=== PATIENT | female | born 1970 ===

== ENCOUNTER 2019-02-14 09:37 | Day surgery (SDC) | payer OTHER ==
[~2019-02-14] VITALS: Ht 165.1 cm; Wt 103.0 kg
[2019-02-14] VITALS (8 sets, daily range): BP systolic 117–139; BP diastolic 48–87
[~2019-02-14 09:37] MED LIST: LR 1000ml 1,000 ML IVLG SCH
[2019-02-14] MEDS ORDERED: LR 1000ml 1,000 ML IVLG SCH (10:02)
[2019-02-14] MEDS ORDERED: DiphenhydrAMINE 50mg/ml Inj IVP PRN (10:15)
[2019-02-14] MEDS ORDERED: fentaNYL 100 mcg/2 mL IV PRN (10:15)
[2019-02-14] MEDS ORDERED: Midazolam 2mg/2ml Inj IVP PRN (10:15)
[2019-02-14] MEDS ORDERED: Atropine Inj 1mg/10ml Syr IV PRN (10:15)
--- NOTE | 2019-02-14 10:15 | Anethesia Preoperative Eval ---
Anesthesia Pre-op PMH/ROS General Date of Evaluation: Feb 14, 2019 Time of Evaluation: 10:05 Anesthesiologist: carla ASA Score: ASA 2 Mallampati Score Class I : Soft palate, uvula, fauces, pillars visible Class II: Soft palate, uvula, fauces visible Class III: Soft palate, base of uvula visible Class IV: Only hard plate visible Mallampati Classification: Class II Surgeon: shira Diagnosis: anemia, gerd Surgical Procedure: egd/colonoscopy Social History: smoking - nonsmoker Family History: no anesthesia problems Allergies: Coded Allergies: No Known Allergies (Unverified , 02/12/19) Medications: see eMAR Patient NPO?: Yes Past Medical History Pulmonary: Reports: other - pneumonia HEENT: Reports: other - decreased visual acuity PSxH Narrative: nasal sx, tonsillectomy, hysterectomy Anesthesia Pre-op Phys. Exam Physician Exam Last Vital Signs Date Time Temp Pulse Resp B/P (MAP) Pulse Ox O2 Delivery O2 Flow Rate FiO2 02/14/19 10:16 Room Air 02/14/19 10:12 98.3 90 20 139/87 99 Constitutional: NAD Neurologic: CN 2-12 intact Cardiovascular: RRR Respiratory: CTA Gastrointestinal: S/NT/ND Airway Exam Mallampati Score: Class II MO: limited Neck: flexible TMD: 2fb ROM: limited Anesthesia Pre-op A/P Risk Assessment & Plan Assessment: asa2 Plan: mac Status Change Before Surgery: No Pre-Antibiotics Drug: Jennifer Jarrell MD Feb 14, 2019 10:15
[2019-02-14] MEDS ORDERED: Lidocaine 1% MPF 10mg/ml 5ml ONE (12:00)
[2019-02-14] MEDS ORDERED: Propofol 200mg/20ml IV ONE (12:00)
[2019-02-14] MEDS ORDERED: LR 1000ml ONE (12:00)
--- NOTE | 2019-02-14 12:11 | Short Stay Surgery H&P ---
History of Present Illness History of Present Illness Chief Complaint Pre procedure note - no change from recent note attached. HPI Shayy Lopez is a 48 year old female who was admitted on for Anemia Patient History Allergies: Coded Allergies: No Known Allergies (Unverified , 02/12/19) Physical Exam Vital Signs Last Vital Signs Date Time Temp Pulse Resp B/P (MAP) Pulse Ox O2 Delivery O2 Flow Rate FiO2 02/14/19 10:16 Room Air 02/14/19 10:12 98.3 90 20 139/87 99 Plan Attestation Are the patient's medical conditions optimized for surgery? Bonifacio Preston MD Feb 14, 2019 12:11
--- NOTE | 2019-02-14 12:12 | Pre-Procedure Note/Attestation ---
Pre-Procedure Note/Attestation Complete Prior to Procedure Planned Procedure: not applicable Procedure Narrative: EGD Colon Indications for Procedure Pre-Operative Diagnosis: anemia Attestation I attest that I discussed the nature of the procedure; its benefits; risks and complications; and alternatives (and the risks and benefits of such alternatives ), prior to the procedure, with the patient (or the patient's legal commercial representative). I attest that, if there was a reasonable possibility of needing a blood transfusion, the patient (or the patient's legal commercial representative) was given the [facility] standardized written summary, pursuant to the [place] Blood Safety Act ([place] Health and Safety Code # 1645, as amended). I attest that I re-evaluated the patient just prior to the surgery and that there has been no change in the patient's H&P, except as documented below: Bonifacio Preston MD Feb 14, 2019 12:12
[2019-02-14] MEDS ORDERED: DEXILANT60 MG ORAL (12:15)
--- NOTE | 2019-02-14 13:32 | Immediate Post-Op Evaluation ---
Immediate Post-Op Evalulation Immediate Post-Op Evalulation Procedure: egd/colonoscopy w/bx Date of Evaluation: Feb 14, 2019 Time of Evaluation: 13:16 IV Fluids: 800ml lr Blood Products: none Estimated Blood Loss: negligible Blood Pressure Systolic: 117 Blood Pressure Diastolic: 76 Pulse Rate: 84 Respiratory Rate: 18 O2 Sat by Pulse Oximetry: 98 Temperature (Fahrenheit): 97.7 Pain Score (1-10): 0 Nausea: Yes - zofran 4mg ordered Vomiting: No Patient Status: awake, reacts, patent Hydration Status: adequate Drug: Jennifer Jarrell MD Feb 14, 2019 13:32
--- NOTE | 2019-02-14 13:33 | 48 Hour Post Anesthesia Eval ---
Post Anesthesia Evaluation Procedure: egd/colonoscopy w/bx Date of Evaluation: Feb 14, 2019 Time of Evaluation: 13:18 Blood Pressure Systolic: 121 0: 77 Pulse Rate: 77 Respiratory Rate: 18 Temperature (Fahrenheit): 97.7 O2 Sat by Pulse Oximetry: 98 Airway: patent Nausea: No Vomiting: No Pain Intensity: 0 Hydration Status: adequate Cardiopulmonary Status: stable Mental Status/LOC: patient returned to baseline Post-Anesthesia Complications: none Follow-up care needed: N/A Jennifer Horn MD Feb 14, 2019 13:33
--- NOTE | 2019-02-14 16:19 | Endoscopy Procedure Note ---
Endoscopy Procedure Note General Indication for Procedure: anemia Procedures Performed: EGD, colonoscopy Operative Findings/Diagnosis: HH x 8-9, GERD, gastric polyps, normal colon and TI, bx polyps, SB, TI Specimen: yes Pt Tolerated Procedure Well: Yes Estimated Blood Loss: none Anesthesia Anesthesiologist: Isiah Cintron Anesthesia: MAC Medications Medication Given: see anesthesia record Inserted Devices Implant(s) used?: No Quality Quality of Bowel Preparation: Excellent GI Core Measures 50 yrs or older w/o bx or poly: Not Applicable 10yrs. F/U recommended: Not Applicable Bonifacio Preston MD Feb 14, 2019 16:19
--- NOTE | 2019-02-14 16:45 | Procedure Note ---
DATE OF PROCEDURE: 02/14/2019 GASTROENTEROLOGY PROCEDURE SURGEON: Bonifacio Preston M.D. PROCEDURE: Upper gastrointestinal endoscopy with biopsy as well as colonoscopy with biopsy. ANESTHESIA: Please see the separate anesthesiologist notes for details. PRE-ENDOSCOPIC DIAGNOSIS: Anemia. POST-ENDOSCOPIC DIAGNOSES: 1. 8 to 9 cm hiatal hernia. 2. Gastroesophageal reflux disease with small linear erosion measuring approximately 1 to 2 cm in the lower esophagus. 3. Multiple gastric polyps in the fundus of the stomach, status post biopsy x6. 4. Status post random biopsies of the normal duodenum. 5. Normal colonoscopy including 10 cm of terminal ileum. 6. Status post random biopsy with normal terminal ileum. DESCRIPTION OF PROCEDURE: The procedure, its risks, indications, alternatives, and possible complications were explained and informed consent was obtained. Diagnostic upper endoscope was introduced through the oropharynx and advanced to the duodenum. The endoscope was then gradually withdrawn and then the colonoscope was introduced in the rectum and advanced to the terminal ileum. The colonoscope was then gradually withdrawn. Findings and procedures were as listed above. The patient tolerated the procedure well and was left to recovery in good condition. COMPLICATIONS: None. RECOMMENDATIONS: 1. Follow up biopsy results. 2. Reflux precautions. 3. Continue acid blockade. 4. Outpatient followup. Thank you for asking me to participate in the care of this patient. Bonifacio Preston M.D. DR: JOE JOB#: [id number] CC: Rajendra Giraldo M.D.; Fax#: [phone]
== END 2019-02-14 14:15 | disposition home or self-care (01) ==
LOC: GAS 09:37
DX: D64.9 Anemia, unspecified (principal); K44.9 Diaphragmatic hernia without obstruction or gangrene; K21.9 Gastro-esophageal reflux disease without esophagitis; K31.7 Polyp of stomach and duodenum; Z90.710 Acquired absence of both cervix and uterus
CPT/HCPCS: 43239; 45380; J2405; J2704; J7120; 94003; 94150